=== PATIENT | female | born 1985 | race Caucasian/White ===

== ENCOUNTER 2017-01-13 18:21 | Emergency (ER) | payer OTHER | END 2017-01-13 21:46 | disposition home or self-care (01) | LOC: ER 18:21 | DX: K04.7 Periapical abscess without sinus (principal); L03.211 Cellulitis of face; F32.9 Major depressive disorder, single episode, unspecified; F41.9 Anxiety disorder, unspecified; K21.9 Gastro-esophageal reflux disease without esophagitis; F17.210 Nicotine dependence, cigarettes, uncomplicated | CPT/HCPCS: 36415; 96365; 96375; J1885; Q9967 ==